=== PATIENT | female | born 1990 | race Caucasian/White ===

== ENCOUNTER 2022-08-02 10:19 | Emergency (ER) | payer MEDICAID ==
[2022-08-02 10:37] VITALS: BP 149/87
[2022-08-02 10:52] LABS: RAPID STREP SCREEN POSITIVE (Negative)
[2022-08-02] MEDS ORDERED: DEXAMETHASONE 10 MG/ML VIAL PO STA (11:15)
[2022-08-02] MEDS ORDERED: CHERRY SYRUP 10 ML UDC PO ONE (11:15)
--- NOTE | 2022-08-02 11:17 | ED Physician Documentation ---
History of Present Illness - Stated complaint Stated Complaint: THROAT PX/SWELLING - Chief complaint Chief Complaint: Heent - History obtained from History obtained from: Patient - History of Present Illness Timing: How many days ago (3) Pain level max: 7 Pain level now: 5 - Additonal information Additional information: 31-year-old female with sore throat for the past several days. Gradually worsening. Worse with eating and drinking, better with rest. No fevers. No chills. Mild dry cough for the past several weeks. Denies any possibility of . No abdominal pain. No vomiting. No rash. Review of Systems Nose: denies: Rhinorrhea / runny nose, Congestion GI: denies: Vomiting, Diarrhea : denies: Now EGA Skin: denies: Rash Musculoskeletal: denies: Neck pain, Back pain PD PAST MEDICAL HISTORY - Past Medical History Past Medical History: No - Past Surgical History Past Surgical History: No - Present Medications Home Medications: Ambulatory Orders Medication Instructions Recorded Confirmed Ibuprofen [Motrin] 800 mg PO Q8H PRN #30 tablet 08/02/22 Penicillin V Potassium 500 mg PO Q6HR #40 tablet 08/02/22 - Allergies Allergies/Adverse Reactions: Allergies Allergy/AdvReac Type Severity Reaction Status Date / Time No Known Drug Allergies Allergy Verified 08/02/22 10:35 - Living Situation Living Situation: reports: With family Living Arrangement: reports: At home - Social History Does the pt have substance abuse?: No - Family History Family history: reports: Non contributory PD ED PE NORMAL - Vitals Vital signs reviewed: Yes - General General: Alert and oriented X 3, No acute distress - HEENT HEENT: PERRL, Moist mucous membranes, Other (Posterior oropharynx is erythematous with tonsillar exudates. Normal phonation. No trismus. Uvula midline.) - Neck Neck: Supple, no meningeal sign, No adenopathy, Other (Normal phonation. No trismus. No stridor. No wheezing) - Cardiac Cardiac: RRR, Strong equal pulses - Respiratory Respiratory: No respiratory distress, Clear bilaterally - Abdomen Abdomen: Soft, Non tender, Non distended - Derm Derm: Warm and dry, No rash - Neuro Neuro: Alert and oriented X 3 - Psych Psych: Normal mood, Normal affect Results - Vitals Vitals: Vital Signs - 24 hr 08/02/22 10:32 Temperature 36.6 C Heart Rate 74 Respiratory 16 Rate Blood Pressure 149/87 H O2 Saturation 99 Oxygen O2 Source Room air - Labs Labs: Laboratory Tests 08/02/22 10:35 Group A Strep Rapid POSITIVE H PD Medical Decision Making - ED course Complexity details: reviewed results, considered differential, d/w patient ED course: 31-year-old female with a positive strep test. Symptoms consistent with strep pharyngitis as well. Given dexamethasone here. Will place on oral antibiotics for home. Patient is well-appearing, nontoxic. Afebrile. No evidence of peritonsillar or retropharyngeal abscess. Patient counseled regarding signs and symptoms for which I believe and urgent re-evaluation would be necessary. Patient with good understanding of and agreement to plan and is comfortable going home at this time This document was made in part using voice recognition software. While efforts are made to proofread this document, sound alike and grammatical errors may occur. Departure - Departure Disposition: 01 Home, Self Care Clinical Impression: Strep pharyngitis Condition: Good Instructions: ED Strep Pharyngitis Conf Follow-Up: your,doctor in 1 week if not better [Other] Prescriptions: Penicillin V Potassium 500 mg PO Q6HR #40 tablet Ibuprofen [Motrin] 800 mg PO Q8H PRN #30 tablet PRN Reason: PAIN &/OR FEVER Comments: Your prescriptions were sent to [facility] in [place]. Please take all antibiotics until gone. Drink plenty of water, cool items such as popsicles will help with pain and swelling as well. Please return if you worsen. Discharge Date/Time: 08/02/22 11:34
== END 2022-08-02 11:34 | disposition home or self-care (01) ==
LOC: ED 10:19
DX: J02.0 Streptococcal pharyngitis (principal)
CPT/HCPCS: 87430; 99283; A9270

== ENCOUNTER 2023-09-29 14:42 | Outpatient (CLI) | payer MEDICAID ==
[2023-09-29 14:54] LABS: BASOPHILS # (AUTO) 0.1 10^3/uL (0.0-0.1); EOSINOPHILS # (AUTO) 0.1 10^3/uL (0.0-0.7); EOSINOPHILS % (AUTO) 1.7 %; HCT - HEMATOCRIT 38.5 % (37.0-47.0); HGB - HEMOGLOBIN 12.2 g/dL (12.0-16.0); LYMPHOCYTES # (AUTO) 2.8 10^3/uL (1.5-3.5); LYMPHOCYTES % (AUTO) 38.7 %; MEAN CORPUSCULAR HEMOGLOBIN 25.5 pg (27.0-31.0); MEAN CORPUSCULAR HGB CONC 31.7 g/dL (32.0-36.0); MEAN CORPUSCULAR VOLUME 80.4 fL (81.0-99.0); MEAN PLATELET VOLUME 10.4 fL (7.9-10.8); MONOCYTES # (AUTO) 0.5 10^3/uL (0.0-1.0); MONOCYTES % (AUTO) 6.6 %; NEUTROPHILS # (AUTO) 3.7 10^3/uL (1.5-6.6); NEUTROPHILS % (AUTO) 51.7 %; PLT - PLATELET COUNT 247 10^3/uL (130-450); RED BLOOD COUNT 4.79 10^6/uL (4.20-5.40); RED CELL DISTRIBUTION WIDTH 14.5 % (12.0-15.0); WHITE BLOOD COUNT 7.1 x10^3/uL (4.8-10.8)
[2023-09-29 15:17] LABS: % IRON SATURATION 6 % (20-50); ALBUMIN 4.5 g/dL (3.2-5.5); ALBUMIN/GLOBULIN RATIO 1.6 (1.0-2.2); ALKALINE PHOSPHATASE 49 IU/L (42-121); ALT ALANINE AMINOTRANSFERASE 15 IU/L (10-60); AST ASPARTATE AMINOTRANSFERASE 17 IU/L (10-42); BILIRUBIN,TOTAL 0.3 mg/dL (0.2-1.0); BUN - BLOOD UREA NITROGEN 18 mg/dL (6-20); CALCIUM 9.5 mg/dL (8.5-10.3); CARBON DIOXIDE - CO2 24 mmol/L (21-32); CHLORIDE 107 mmol/L (101-111); CHOL/HDL RATIO 4.7 (<4.4); CHOLESTEROL 155 mg/dL; CREATININE 0.7 mg/dL (0.6-1.3); GFR - MDRD 98 (>89); GLUCOSE 78 mg/dL (74-104); HDL CHOLESTEROL 33 mg/dL; IRON 26 ug/dL (50-212); LDL CHOLESTEROL,CALCULATED 77 mg/dL; LDL/HDL RATIO 2.3 (<4.4); POTASSIUM 3.9 mmol/L (3.5-4.5); SODIUM 136 mmol/L (135-145); TOTAL IRON BINDING CAPACITY 455 ug/dL (250-450); TOTAL PROTEIN 7.4 g/dL (6.4-8.9); TRANSFERRIN 325 mg/dL (203-362); TRIGLYCERIDES 225 mg/dL; VLDL CHOLESTEROL 45 mg/dL
[2023-09-29 15:33] LABS: THYROID STIMULATING HORMONE 2.63 uIU/mL (0.34-5.60)
[2023-09-29 15:40] LABS: FERRITIN 6.5 ng/mL (11.0-306.8)
--- NOTE | 2023-09-29 16:02 | XRAY Report ---
PROCEDURE: Knee 1-2V RT INDICATIONS: RIGHT KNEE JOINT PAIN TECHNIQUE: 2 views of the knee(s) were acquired. COMPARISON: None. FINDINGS: Bones: No fracture or subluxation seen. Soft tissues: No radiographically evident suprapatellar joint effusion seen IMPRESSION: No acute osseous abnormality. Reviewed by: Juan Granados MD on 09/29/2023 4:01 PM PDT Approved by: Juan Granados MD on 09/29/2023 4:01 PM PDT Station ID: [id number]
== END 2023-09-29 14:43 | disposition home or self-care (01) ==
LOC: LAB 14:42
PROVIDERS: ATTEND Nurse Practitioner Family
DX: M25.561 Pain in right knee (principal); E61.1 Iron deficiency; Z83.49 Family history of other endocrine, nutritional and metabolic diseases; E55.9 Vitamin D deficiency, unspecified; Z80.8 Family history of malignant neoplasm of other organs or systems; D64.9 Anemia, unspecified
CPT/HCPCS: 36415; 80053; 80061; 82306; 82607; 82728; 83540; 83721; 84443; 84466; 85025

== ENCOUNTER 2023-10-20 12:33 | Outpatient (CLI) | payer MEDICAID ==
--- NOTE | 2023-10-20 13:58 | Ultrasound Report ---
PROCEDURE: Soft Tissue Head or Neck INDICATIONS: CERVICAL SPINAL MASS TECHNIQUE: Real-time scanning was performed of the area of the mass lesion, with image documentation. FINDINGS: In the area of the palpable mass involving the posterior neck ultrasound imaging shows no evidence of any focal solid or cystic lesion. No other significant findings are identified. If further evaluatio n for soft tissue mass is indicated a MRI with and without intravenous gadolinium through the area of clinical concern may be of further clinical value. IMPRESSION: No focal solid or cystic mass lesion identified in the area of clinical concern. Reviewed by: Ken Ceballos MD on 10/20/2023 1:56 PM PDT Approved by: Ken Ceballos MD on 10/20/2023 1:56 PM PDT Station ID: [id number]
== END 2023-10-20 12:34 | disposition home or self-care (01) ==
LOC: DI 12:33
PROVIDERS: ATTEND Nurse Practitioner Family
DX: R22.1 Localized swelling, mass and lump, neck (principal)